=== PATIENT | female | born 1940 | race Caucasian/White ===

== ENCOUNTER 2023-03-03 11:25 | Outpatient (OUT) | payer MEDICARE, BC, SELFPAY ==
[2023-03-03 12:04] LABS: Basophils Absolute Auto 0.1 10^3/uL (0.0-0.1); Basophils Percent Auto 0.8 % (0.2-2.0); Eosinophils Absolute Auto 0.2 10^3/uL (0.0-0.7); Eosinophils Percent Auto 3.7 % (0.9-7.0); Hematocrit 40.8 % (36.0-48.0); Hemoglobin 13.3 g/dL (12.0-16.0); Immature Granulocytes Abs Auto 0.02 10^3/uL (0.00-0.03); Immature Granulocytes Pct Auto 0.3 % (0.0-0.5); Lymphocytes Percent Auto 31.5 % (20.5-60.0); Mean Corpuscular HGB Conc 32.6 g/dL (29.9-35.2); Mean Corpuscular Hemoglobin 30.5 pg (26.7-34.0); Mean Corpuscular Volume 93.6 fL (81.0-99.0); Mean Platelet Volume 10.3 fL (9.5-13.5); Monocytes Absolute Auto 0.5 10^3/uL (0.3-0.8); Monocytes Percent Auto 7.9 % (1.7-12.0); Neutrophils Absolute Auto 3.6 10^3/uL (1.4-6.5); Neutrophils Percent Auto 55.8 % (43.0-75.0); Platelet Count 174 10^3/uL (150-450); Red Blood Count 4.36 10^6/uL (4.20-5.40); Red Cell Distribution Width 12.9 % (11.0-15.0); White Blood Count 6.4 10^3/uL (4.0-11.0)
[2023-03-03 12:48] LABS: Alanine Aminotransferase 17 U/L (14-59); Albumin Globulin Ratio 1.3; Albumin Level 3.9 g/dL (3.4-5.0); Alkaline Phosphatase 62 U/L (46-116); Anion Gap 12.5; Aspartate Amino Transferase <5 U/L (15-37); BUN Creatinine Ratio 18.2; Bilirubin Total 1.3 mg/dL (0.2-1.0); Calcium 9.2 mg/dL (8.5-10.1); Carbon Dioxide 24.8 mmol/L (21.0-32.0); Chloride 107 mmol/L (98-107); Estimated GFR (African America >60 (>=60); Estimated GFR (Non-African Ame 54 (>=60); Globulin 2.9 g/dL; Glucose 260 mg/dL (74-106); Potassium 4.3 mmol/L (3.5-5.1); Sodium 140 mmol/L (136-145); Total Protein 6.8 g/dL (6.4-8.2)
== END 2023-03-03 11:26 | disposition home or self-care (01) ==
LOC: LAB 11:30
PROVIDERS: PCP Nurse Practitioner; Visit Provider Nurse Practitioner Acute Care
DX: I10 Essential (primary) hypertension (principal)
CPT/HCPCS: 36415; 80053; 85025

== ENCOUNTER 2023-03-27 09:55 | Outpatient (OUT) | payer MEDICARE, BC, SELFPAY ==
--- NOTE | 2023-03-27 10:50 | CA_ITS ---
Patient: SCOTT BERNAL Exam Date: 03/27/2023 : 1940 Gender:F Ordering : MRS. MINNA DOUGHERTY NP Admission #: [id number] Family : Order #: [id number] CLICK HERE TO VIEW EXAM ECHOCARDIOGRAM REPORT PROCEDURE: CA ECHO DOPPLER COMPLETE INDICATIONS: Pulmonary hypertension COMPARISON: None. DESCRIPTION: COMPLETE ECHOCARDIOGRAM Real-time transthoracic echocardiography with 2D, M-mode, spectral and color flow Doppler performed. QUALITY: Technical quality was good. LEFT VENTRICLE: Normal chamber size. Thickened septal wall. LV EF: Global left ventricular systolic function is normal. Calculated left ventricular ejection fraction is 59%. No significant wall motion abnormalities. DIASTOLIC: Grade 2, moderate diastolic dysfunction. ATRIAL SEPTUM: Inadequately seen. LEFT ATRIUM: Appears enlarged. RIGHT ATRIUM: Mild dilatation. RIGHT VENTRICLE: Normal chamber size. Normal right ventricular systolic function. Pacer wire present. TRICUSPID VALVE: Normal mobility and thickness. Mild regurgitation. Mild pulmonary hypertension. RVSP 44mmHg MITRAL VALVE: Mildly thickened with normal mobility. No evidence of mitral valve stenosis. Moderate mitral annular calcification. Moderate mitral regurgitation. AORTIC VALVE: Normal trileaflet appearance. Mildly calcified aortic valve. Mildly diminished mobility. Doppler velocity suggests mild aortic valve stenosis. DVI 0.5. No aortic regurgitation. AORTIC ROOT: Normal diameter and appearance. PULMONIC VALVE: Normal thickness and mobility. No stenosis. Trivial regurgitation. PERICARDIUM: Anterior free space; trivial effusion versus fat pad. IVC: Collapses with inspirations. Normal size. CONCLUSION: 1. Global left ventricular systolic function is normal; visually estimated ejection fraction is 55 to 60%. 2. Biatrial enlargement. 3. The right ventricle is normal in size and systolic function. 4. Grade 2, moderate diastolic dysfunction. 5. Mild tricuspid regurgitation. 6. Mildly elevated right ventricular systolic pressure; RVSP 44 mmHg. 7. Moderate mitral regurgitation. 8. Mild aortic valve stenosis. 9. Anterior free space; trivial effusion versus fat pad. Adult Echocardiography Procedure Report Left Ventricle LVEDD (3.7 - 5.6 cm): 4.60 cm LVESD (2.2 - 4.0 cm): 3.17 cm LVIVS thickness (0.6 - 1.2 cm): 1.59 cm LVPW thickness (0.5 - 1.0 cm): 0.87 cm e': 0.06 m/s E - e': 16.17 LVOT Max Gradient: 3.00 mm[Hg] LVOT Area (cm2): 0.87 m/s Peak Velocity (LVOT): 0.87 m/s Mean Velocity (LVOT): 0.62 m/s LVOT Diameter 1.97 cm Left Ventricular Ejection Fraction: 58.93 % Left Atrium LA Volume Index (2D A2C): 44.04 ml/m2 Left Atrium Systolic Dimension: 4.72 cm Mitral Valve MV E to A Ratio: 1 Mitral Valve A-Wave Peak Velocity: 0.97 m/s Mitral Valve E-Wave Peak Velocity: 0.97 m/s Right Ventricle RV Internal Diastolic Dimension: 3.18 cm Aorta AO Root Diam: 2.82 cm Ascending Ao Diam: 3.36 cm Aortic Valve AoV Area (Peak Yury): 1.61 cm2, 1.61 cm2 AoV Area (VTI): 1.47 cm2, 1.47 cm2 Peak Velocity(Antegrade Flow): 1.64 m/s Peak Gradient(Antegrade Flow): 10.70 mm[Hg] Mean Velocity(Antegrade Flow): 1.18 m/s Mean Gradient(Antegrade Flow): 6.20 mm[Hg] Velocity Time Integral: 45.58 cm Tricuspid Valve Peak Velocity (Regurgitant Flow): 3.21 m/s, 3.11 m/s, 2.90 m/s Pulmonic Valve Mean Gradient: 2.32 mm[Hg], 2.69 mm[Hg] Mean Velocity: 0.72 m/s, 0.77 m/s Peak Velocity: 1.05 m/s Peak Gradient: 3.90 mm[Hg], 4.97 mm[Hg] Right Atrium Right Atrium Systolic Pressure: 37.06 ml, 37.06 ml Dictated by: Narendra Casarez M.D. on 03/28/2023 at 15:23 Approved by: Narendra Casarez M.D. on 03/28/2023 at 15:30
== END 2023-03-27 09:56 | disposition home or self-care (01) ==
LOC: CARD 09:55
PROVIDERS: PCP Nurse Practitioner; Visit Provider Nurse Practitioner Acute Care
DX: I27.20 Pulmonary hypertension, unspecified (principal); I08.3 Combined rheumatic disorders of mitral, aortic and tricuspid valves
CPT/HCPCS: 93306

== ENCOUNTER 2023-11-24 11:34 | Emergency (ER) | payer MEDICARE, BC, SELFPAY ==
[2023-11-24 11:39] VITALS: BP 174/70; PULSE 69; TEMP 36.8; O2SAT 96; BMI 34.8
--- NOTE | 2023-11-24 11:46 | XR_ITS ---
The [address] [address] Patient Name: SCOTT BERNAL MRN: [id number] date: 1940 Sex: F Assigned Patient Location: ER Current Patient Location: ER Accession/Order Number: [id number] Exam Date: 11/24/2023 11:50 Report Date: 11/24/2023 12:41 At the request of: YUMIKO SCOTT Procedure: XR ribs RT min 3V w CXR1V EXAMINATION: XR ribs RT min 3V w CXR1V HISTORY: fall [; acute anterior right rib pain COMPARISON: XR chest 02/18/2022 FINDINGS: LUNGS: Hyperexpanded lungs. No appreciable infiltrates or suspicious nodules. PLEURA: No pneumothorax, effusion, or pleural thickening. MEDIASTINUM: No visible mass or adenopathy. CARDIAC: No cardiomegaly or cardiac silhouette abnormality. RIBS: Normal. No significant arthropathy or acute abnormality. OTHER: Cardiac pacer. XR/XR ribs RT min 3V w CXR1V IMPRESSION: 1. No acute cardiac pulmonary process. 2. No appreciable right rib fracture. Electronically authenticated by: KEVIN DAY Date: 11/24/2023 12:41
--- NOTE | 2023-11-24 11:46 | ED.FALL1 ---
HPI HPI - Fall General Chief Complaint: Fall Stated Complaint: FALL Time Seen by Provider: 11/24/23 11:38 Source: patient Mode of arrival: walk-in Limitations: no limitations History of Present Illness HPI Narrative: 83-year-old female presents for pain in her right anterior lateral rib region. She tripped and fell and believes that her right arm got pushed into her ribs. She did not hit her head and does not believe that she hit the rib area on the ground. No LOC and no abdominal pain. This happened 30 minutes ago. Related Data Allergies Allergy/AdvReac Type Severity Reaction Status Date / Time No Known Drug Allergies Allergy Verified 11/24/23 11:38 Opioid HPI Opioid Management Most Recent Pain and Opioid Data: Last Pain Scale 5 11/24/23 11:45 Review of Systems ROS Narrative A ten point review of systems is negative except as noted above. Exam Narrative Exam Narrative: Nurses note and vital signs reviewed and patient is not hypoxic. General: The patient appears well and in no apparent distress. Patient is resting comfortably on cart. Skin: Warm, dry, no pallor noted. There is no rash noted. Head: Normocephalic, atraumatic Eye: Normal conjunctiva, no drainage Ears, Nose, Mouth, and Throat: oral mucosa is moist. Nares patent. Cardiovascular: Regular Rate and Rhythm Respiratory: Patient is in no distress, no accessory muscle use, lungs are clear to auscultation, no wheezing, rales or rhonchi; tenderness present to the right anterior lateral rib region. No crepitus bruise or abrasion present. Breath sounds equal. Back: non-tender, no CVA tenderness bilaterally to percussion. GI: Soft and nontender including the right upper quadrant Musculoskeletal: The patient has no evidence of calf tenderness, no pitting edema, symmetrical pulses noted bilaterally Neurological: A&O, normal speech Psychiatric: Cooperative Constitutional Vital Signs, click to edit/add: Last Vital Signs Temp 98.2 F 11/24/23 11:39 Pulse 69 11/24/23 11:39 Resp 20 11/24/23 11:39 BP 174/70 H 11/24/23 11:39 Pulse Ox 96 11/24/23 11:39 O2 Del Method Room Air 11/24/23 11:39 Course Vital Signs Vital signs: Vital Signs Temperature 98.2 F 11/24/23 11:39 Pulse Rate 69 11/24/23 11:39 Respiratory Rate 20 11/24/23 11:39 Blood Pressure 174/70 H 11/24/23 11:39 Pulse Oximetry 96 11/24/23 11:39 Oxygen Delivery Method Room Air 11/24/23 11:39 Temperature 98.2 F 11/24/23 11:39 Pulse Rate 69 11/24/23 11:39 Respiratory Rate 20 11/24/23 11:39 Blood Pressure 174/70 H 11/24/23 11:39 Pulse Oximetry 96 11/24/23 11:39 Oxygen Delivery Method Room Air 11/24/23 11:39 MDM - Fall MDM Narrative Medical decision making narrative: X-ray showed no rib fracture. Findings are discussed with the patient and she is able to be discharged home. Imaging Data Rib x-ray : Radiologist's impression: ITS Impressions Ribs X-Ray 11/24/23 11:46 IMPRESSION: 1. No acute cardiac pulmonary process. 2. No appreciable right rib fracture. Electronically authenticated by: KEVIN DAY Date: 11/24/2023 12:41 Discharge Plan Discharge Stand Alone Forms: Portal Instructions Chief Complaint: Fall Clinical Impression: Chest wall contusion Patient Disposition: Home, Self-Care Time of Disposition Decision: 12:50 Condition: Good Mode of Transportation: Private Vehicle Print Language: Turkish Instructions: Contusion in Adults (ED), Rib Contusion (ED) Referrals: HAIM PALACIOS [Primary Care Provider] - 1 week
== END 2023-11-24 12:53 | disposition home or self-care (01) ==
PROVIDERS: Emergency Provider Emergency Medicine; PCP Nurse Practitioner
DX: S20.211A Contusion of right front wall of thorax, initial encounter (principal); W01.0XXA Fall on same level from slipping, tripping and stumbling without subsequent striking against object, initial encounter
CPT/HCPCS: 71101; 99283

== ENCOUNTER 2023-12-15 16:48 | Emergency (ER) | payer MEDICARE, BC, SELFPAY ==
[2023-12-15] VITALS (19 sets, daily range): BP systolic 141–185; BP diastolic 60–105; PULSE 60–76; TEMP 36.9; O2SAT 95–97; BMI 34.8
--- NOTE | 2023-12-15 16:58 | ECG_ITS ---
The [facility] Test Date: 2023-12-15 Pat Name: SCOTT BERNAL Department: Room: - Gender: Female [employer]: : 1940 Requested By: Order Number: [id number] Reading MD: GARRY FOOTE Measurements Intervals [place] Rate: 63 P: -86 AK: 274 QRS: 117 QRSD: 148 T: 53 QT: 472 QTc: 480 Interpretive Statements [id number] Electronic atrial pacemaker Electronically Signed On 12-16-2023 8:05:24 EDT by GARRY FOOTE
--- NOTE | 2023-12-15 17:17 | XR_ITS ---
The [address] [address] Patient Name: SCOTT BERNAL MRN: [id number] date: 1940 Sex: F Assigned Patient Location: ER Current Patient Location: ER Accession/Order Number: [id number] Exam Date: 12/15/2023 17:40 Report Date: 12/15/2023 18:41 At the request of: ANNMARIE SANCHEZ Procedure: XR chest 2V EXAM: XR chest 2V HISTORY: SHORTNESS OF BREATH COMPARISON: 11/24/2023 and earlier. TECHNIQUE: PA, lateral chest x-ray. FINDINGS: Lung markings prominent but unchanged without increasing lung density, consolidation or edema. Mild cardiac enlargement also stable. Pacemaker leads unchanged. No pleural effusion. XR/XR chest 2V IMPRESSION: Stable chest x-ray, no acute findings. Electronically authenticated by: EDIN HANSEN Date: 12/15/2023 18:41
--- NOTE | 2023-12-15 17:22 | ED_ITS ---
HPI HPI - General Adult General Chief complaint: Shortness of Breath/Dyspnea Stated complaint: bp elevated, sob Time Seen by Provider: 12/15/23 16:52 Source: patient Mode of arrival: walk-in History of Present Illness HPI narrative: Patient is a 83-year-old female who is presenting to the ER today with chief complaint of elevated blood pressure 170s over 70s. Patient has no headache, chest pain or shortness of breath. Patient is been having some mild swelling to lower extremities in the evening the past 4 to 5 days. Patient is at bedside. Patient was concerned about 1 elevated blood pressure, so she came to the ER for evaluation. Patient states she has had mild shortness of breath this week, no significant dyspnea with exertion. No difficulty sleeping at nighttime. When patient sleeps at nighttime, she notices that the swelling to her lower extremities are improved in the morning. Patient does take blood pressure medication, no water pills. Patient does have a PCP. Patient is not h ere because the swelling to her legs, she was here because the 1 elevated blood pressure that concerned her even though she is rather asymptomatic. Very pleasant, no recent trauma, no trauma, no other acute complaints All systems are negative except as noted/marked. All systems reviewed and otherwise negative. Nurses note and vital signs reviewed and patient is not hypoxic. General: The patient appears well and in no apparent distress. Patient is resting comfortably on cart. Patient is not toxic, lethargic, or listless Skin: Warm, dry, no pallor noted. There is no rash noted. No petechiae, purpura. Head: Normocephalic, atraumatic Eye: Normal conjunctiva, no drainage, EOMI. PERRL Ears, Nose, Mouth, and Throat: oral mucosa is moist. Nares patent. Mouth without vesicles. Cardiovascular: Regular Rate and Rhythm, no murmur, gallop, rub Respiratory: Patient is in no distress, no accessory muscle use, lungs are clear to auscultation, no wheezing, rales or rhonchi Back: non-tender, no CVA tenderness bilaterally to percussion. No CT LS midline pain GI: no tenderness to palpation, no masses appreciated. No rebound, guarding, or rigidity noted. No distention Musculoskeletal: Patient has full range of motion of all of the extremities, no motor, sensory, or focal neurological deficit, nonpitting edema to bilateral lower extremities. Patient has no pain to palpation to the posterior aspect of bilateral lower extremities from bilateral posterior thighs, popliteal fossa, and calves bilateral. Neurological: A&O x4, normal speech Psychiatric: Cooperative Related Data Home Medications ?Medication ?Instructions ?Recorded ?Confirmed alendronate 70 mg tablet (Fosamax) 70 mg PO QWEEK 12/15/23 12/15/23 amlodipine 5 mg tablet 5 mg PO DAILY 12/15/23 12/15/23 aspirin 81 mg tablet,delayed 81 mg PO DAILY 12/15/23 12/15/23 release carvedilol 6.25 mg tablet 6.25 mg PO BID 12/15/23 12/15/23 cholecalciferol (vitamin D3) 125 5,000 unit PO DAILY 12/15/23 12/15/23 mcg (5,000 unit) capsule glyburide 1.25 mg tablet 1.25 mg PO DAILY 12/15/23 12/15/23 levothyroxine 50 mcg tablet 50 mcg PO DAILY 12/15/23 12/15/23 (Euthyrox) metformin 750 mg tablet,extended 750 mg PO DAILY 12/15/23 12/15/23 release 24 hr simvastatin 40 mg tablet 40 mg PO DAILY 12/15/23 12/15/23 Allergies Allergy/AdvReac Type Severity Reaction Status Date / Time No Known Drug Allergies Allergy Verified 11/24/23 11:38 Opioid HPI Opioid Management Most Recent Opioid Data: Last Pain Scale 5 11/24/23 11:45 Exam Constitutional Vital Signs, click to edit/add: Last Vital Signs Temp 98.5 F 12/15/23 16:50 Pulse 60 12/15/23 18:45 Resp 20 12/15/23 18:45 BP 141/60 12/15/23 18:45 Pulse Ox 97 12/15/23 16:54 O2 Del Method Room Air 12/15/23 16:50 Course Vital Signs Vital signs: Vital Signs Temperature 98.5 F 12/15/23 16:50 Pulse Rate 70 12/15/23 16:50 Respiratory Rate 20 12/15/23 16:50 Blood Pressure 185/90 H 12/15/23 16:50 Pulse Oximetry 96 12/15/23 16:50 Oxygen Delivery Method Room Air 12/15/23 16:50 Temperature 98.5 F 05/10/24 16:50 Pulse Rate 60 12/15/23 18:45 Respiratory Rate 20 12/15/23 18:45 Blood Pressure 141/60 12/15/23 18:45 Pulse Oximetry 97 12/15/23 16:54 Oxygen Delivery Method Room Air 12/15/23 16:50 Medical Decision Making MDM Narrative Medical decision making narrative: Patient had chest x-ray, EKG, lab work done. Patient's blood pressure has been slightly elevated in the ER today. Education on checking blood pressure at home twice a day for the next week and presenting a blood pressure log to her PCP was discussed at bedside. Patient is asymptomatic. Education on elevating legs at nighttime while she is sleeping was discussed, raising the foot of her bed 1 or 2 feet. Patient also has compression stockings at home that she can wear. Patient was given 1 dose of hydralazine 10 mg to help with blood pressure just for this evening. Patient understands that she needs long-term changes, she theodora l follow-up with PCP. Patient will return to the ER if she is having any major headache, major chest pain or pressure, significant shortness of breath or any other acute complaint. Lab Data Lab results reviewed: Yes I reviewed the patient's lab results Labs: Lab Results 12/15/23 Range/Units 17:05 WBC 7.3 (4.0-11.0) 10^3/uL RBC 4.23 (4.20-5.40) 10^6/uL Hgb 12.8 (12.0-16.0) g/dL Hct 39.4 (36.0-48.0) % MCV 93.1 (81.0-99.0) fL MCH 30.3 (26.7-34.0) pg MCHC 32.5 (29.9-35.2) g/dL RDW 13.1 (11.0-15.0) % Plt Count 179 (150-450) 10^3/uL MPV 10.3 (9.5-13.5) fL Neut % (Auto) 53.8 (43.0-75.0) % Lymph % (Auto) 30.6 (20.5-60.0) % Ocean % (Auto) 9.4 (1.7-12.0) % Eos % (Auto) 4.8 (0.9-7.0) % Baso % (Auto) 1.0 (0.2-2.0) % Neut # (Auto) 3.9 (1.4-6.5) 10^3/uL Lymph # (Auto) 2.2 (1.2-3.8) 10^3/uL Ocean # (Auto) 0.7 (0.3-0.8) 10^3/uL Eos # (Auto) 0.4 (0.0-0.7) 10^3/uL Baso # (Auto) 0.1 (0.0-0.1) 10^3/uL Abs Immat Gran (auto) 0.03 (0.00-0.03) 10^3/uL Imm/Tot Granulo (auto) 0.4 (0.0-0.5) % Sodium 141 (136-145) mmol/L Potassium 3.8 (3.5-5.1) mmol/L Chloride 106 (98-107) mmol/L Carbon Dioxide 23.9 (21.0-32.0) mmol/L Anion Gap 14.9 BUN 20.0 H (7.0-18.0) mg/dL Creatinine 0.87 (0.55-1.02) mg/dL Est GFR ( Amer) >60 (>=60) Est GFR (Non-Af Amer) >60 (>=60) BUN/Creatinine Ratio 23.0 Glucose 136 H (74-106) mg/dL Calcium 9.6 (8.5-10.1) mg/dL Troponin I High Sens 10.8 (4.0-51.3) pg/mL NT-Pro-B Natriuret Pep 1621.0 (<=1800.0) pg/mL ECG Data Attestation: I personally reviewed and interpreted this ECG as follows: (EKG interpretation. Atrial paced rhythm at 63 beats a minute. Normal axis deviation. No acute ST elevation, no acute ectopy. QTc of 480) Discharge Plan Discharge Stand Alone Forms: Portal Instructions Chief Complaint: Shortness of Breath/Dyspnea Clinical Impression: Dyspnea, Edema, peripheral, Hypertension Patient Disposition: Home, Self-Care Condition: Fair Prescriptions / Home Meds: No Action levothyroxine [Euthyrox] 50 mcg tablet 50 mcg PO DAILY alendronate [Fosamax] 70 mg tablet 70 mg PO QWEEK simvastatin 40 mg tablet 40 mg PO DAILY metformin 750 mg tablet extended release 24 hr 750 mg PO DAILY glyburide 1.25 mg tablet 1.25 mg PO DAILY aspirin 81 mg tablet,delayed release (DR/EC) 81 mg PO DAILY cholecalciferol (vitamin D3) 125 mcg (5,000 unit) capsule 5,000 unit PO DAILY carvedilol 6.25 mg tablet 6.25 mg PO BID Rx Instructions: must administer with a meal/food amlodipine 5 mg tablet 5 mg PO DAILY Print Language: Kosovan Instructions: Leg Edema (ED), Dyspnea (ED), Hypertension (ED) Additional Instructions: Elevate your legs at bedtime as discussed, raise the end of your bed 1 to 2 feet to help with swelling at nighttime. Use your compression stockings. Take your blood pressure twice a day, record the blood pressure reading and time. Present your blood pressure log to your PCP, and if your blood pressure is consistently over 140/90, you may need a medication adjustment. If you are having any severe, severe headache, significant heavy chest pressure, or significant shortness of breath, return to ER for reevaluation Referrals: HAIM PALACIOS [Primary Care Provider] - 1 week Discharge Date/Time: 12/15/23 19:16
[2023-12-15 17:35] LABS: Basophils Absolute Auto 0.1 10^3/uL (0.0-0.1); Eosinophils Absolute Auto 0.4 10^3/uL (0.0-0.7); Eosinophils Percent Auto 4.8 % (0.9-7.0); Hematocrit 39.4 % (36.0-48.0); Hemoglobin 12.8 g/dL (12.0-16.0); Immature Granulocytes Abs Auto 0.03 10^3/uL (0.00-0.03); Immature Granulocytes Pct Auto 0.4 % (0.0-0.5); Lymphocytes Absolute Auto 2.2 10^3/uL (1.2-3.8); Lymphocytes Percent Auto 30.6 % (20.5-60.0); Mean Corpuscular HGB Conc 32.5 g/dL (29.9-35.2); Mean Corpuscular Hemoglobin 30.3 pg (26.7-34.0); Mean Corpuscular Volume 93.1 fL (81.0-99.0); Mean Platelet Volume 10.3 fL (9.5-13.5); Monocytes Absolute Auto 0.7 10^3/uL (0.3-0.8); Monocytes Percent Auto 9.4 % (1.7-12.0); Neutrophils Absolute Auto 3.9 10^3/uL (1.4-6.5); Neutrophils Percent Auto 53.8 % (43.0-75.0); Platelet Count 179 10^3/uL (150-450); Red Blood Count 4.23 10^6/uL (4.20-5.40); Red Cell Distribution Width 13.1 % (11.0-15.0); White Blood Count 7.3 10^3/uL (4.0-11.0)
[2023-12-15 17:59] LABS: Anion Gap 14.9; Calcium 9.6 mg/dL (8.5-10.1); Carbon Dioxide 23.9 mmol/L (21.0-32.0); Chloride 106 mmol/L (98-107); Estimated GFR (African America >60 (>=60); Estimated GFR (Non-African Ame >60 (>=60); Glucose 136 mg/dL (74-106); Potassium 3.8 mmol/L (3.5-5.1); Sodium 141 mmol/L (136-145); Troponin I High Sensitivity 10.8 pg/mL (4.0-51.3)
[2023-12-15] MEDS: HYDRALAZINE HCL 20 MG/ML VIAL 10 MG IVP (18:22)
== END 2023-12-15 19:16 | disposition home or self-care (01) ==
PROVIDERS: Emergency Provider Emergency Medicine; PCP Nurse Practitioner
DX: I10 Essential (primary) hypertension (principal); R60.0 Localized edema; R06.00 Dyspnea, unspecified; R06.02 Shortness of breath; Z79.82 Long term (current) use of aspirin; Z79.899 Other long term (current) drug therapy
CPT/HCPCS: 36415; 71046; 80048; 83880; 84484; 85025; 93005; 96374; 99285

== ENCOUNTER 2023-12-22 12:01 | Outpatient (OUT) | payer MEDICARE, BC, SELFPAY ==
[2023-12-22 12:37] LABS: Anion Gap 11.7; BUN Creatinine Ratio 23.2; Calcium 9.8 mg/dL (8.5-10.1); Carbon Dioxide 28.3 mmol/L (21.0-32.0); Chloride 105 mmol/L (98-107); Estimated GFR (African America >60 (>=60); Estimated GFR (Non-African Ame >60 (>=60); Glucose 139 mg/dL (74-106); Sodium 141 mmol/L (136-145)
== END 2023-12-22 12:02 | disposition home or self-care (01) ==
LOC: LAB 12:03
PROVIDERS: PCP Nurse Practitioner; Visit Provider Internal Medicine Cardiovascular Disease
DX: I11.0 Hypertensive heart disease with heart failure (principal)
CPT/HCPCS: 36415; 80048

== ENCOUNTER 2024-04-16 11:47 | Outpatient (RCR) | payer MEDICARE, BC, SELFPAY | END 2024-05-07 23:59 | disposition home or self-care (01) | LOC: MM 11:47 | PROVIDERS: PCP Nurse Practitioner; Visit Provider Internal Medicine | DX: Z51.81 Encounter for therapeutic drug level monitoring (principal); Z79.01 Long term (current) use of anticoagulants; I48.20 Chronic atrial fibrillation, unspecified | CPT/HCPCS: 85610; G0463 ==

== ENCOUNTER 2024-04-16 12:54 | Outpatient (OUT) | payer MEDICARE, BC, SELFPAY ==
[2024-04-16 13:31] LABS: Basophils Absolute Auto 0.1 10^3/uL (0.0-0.1); Basophils Percent Auto 0.7 % (0.2-2.0); Eosinophils Absolute Auto 0.3 10^3/uL (0.0-0.7); Eosinophils Percent Auto 3.4 % (0.9-7.0); Hematocrit 42.2 % (36.0-48.0); Hemoglobin 13.8 g/dL (12.0-16.0); Immature Granulocytes Abs Auto 0.03 10^3/uL (0.00-0.03); Immature Granulocytes Pct Auto 0.4 % (0.0-0.5); Lymphocytes Absolute Auto 2.7 10^3/uL (1.2-3.8); Lymphocytes Percent Auto 31.4 % (20.5-60.0); Mean Corpuscular HGB Conc 32.7 g/dL (29.9-35.2); Mean Corpuscular Hemoglobin 30.6 pg (26.7-34.0); Mean Corpuscular Volume 93.6 fL (81.0-99.0); Mean Platelet Volume 10.1 fL (9.5-13.5); Monocytes Absolute Auto 0.7 10^3/uL (0.3-0.8); Monocytes Percent Auto 8.4 % (1.7-12.0); Neutrophils Absolute Auto 4.8 10^3/uL (1.4-6.5); Neutrophils Percent Auto 55.7 % (43.0-75.0); Platelet Count 179 10^3/uL (150-450); Red Blood Count 4.51 10^6/uL (4.20-5.40); Red Cell Distribution Width 13.2 % (11.0-15.0); White Blood Count 8.5 10^3/uL (4.0-11.0)
[2024-04-16 14:00] LABS: Anion Gap 11.7; BUN Creatinine Ratio 24.4; Calcium 9.6 mg/dL (8.5-10.1); Carbon Dioxide 26.6 mmol/L (21.0-32.0); Chloride 106 mmol/L (98-107); Estimated GFR (African America >60 (>=60); Estimated GFR (Non-African Ame 60 (>=60); Glucose 119 mg/dL (74-106); Potassium 4.3 mmol/L (3.5-5.1); Sodium 140 mmol/L (136-145)
== END 2024-04-16 12:55 | disposition home or self-care (01) ==
LOC: LAB 12:54
PROVIDERS: PCP Nurse Practitioner; Visit Provider Internal Medicine Cardiovascular Disease
DX: I48.0 Paroxysmal atrial fibrillation (principal)
CPT/HCPCS: 36415; 80048; 85025

== ENCOUNTER 2024-05-07 01:27 | Outpatient (RCR) | payer MEDICARE, BC, SELFPAY | END 2024-06-06 23:34 | disposition home or self-care (01) | LOC: MM 01:27 | PROVIDERS: PCP Nurse Practitioner; Visit Provider Internal Medicine | DX: Z51.81 Encounter for therapeutic drug level monitoring (principal); Z79.01 Long term (current) use of anticoagulants; I48.20 Chronic atrial fibrillation, unspecified | CPT/HCPCS: 85610; G0463; J3430 ==

== ENCOUNTER 2024-06-07 11:09 | Outpatient (RCR) | payer MEDICARE, BC, SELFPAY | END 2024-07-06 23:59 | disposition home or self-care (01) | LOC: MM 11:09 | PROVIDERS: PCP Nurse Practitioner; Visit Provider Internal Medicine | DX: Z51.81 Encounter for therapeutic drug level monitoring (principal); I48.20 Chronic atrial fibrillation, unspecified; Z79.01 Long term (current) use of anticoagulants ==

== ENCOUNTER 2024-07-08 03:20 | Outpatient (RCR) | payer MEDICARE, BC, SELFPAY | END 2024-08-06 09:38 | disposition home or self-care (01) | LOC: MM 03:20 | PROVIDERS: PCP Nurse Practitioner; Visit Provider Internal Medicine | DX: Z51.81 Encounter for therapeutic drug level monitoring (principal); Z79.01 Long term (current) use of anticoagulants; I48.20 Chronic atrial fibrillation, unspecified ==

== ENCOUNTER 2024-08-08 00:29 | Outpatient (RCR) | payer MEDICARE, BC, SELFPAY | END 2024-09-06 15:23 | disposition home or self-care (01) | LOC: MM 00:29 | PROVIDERS: PCP Nurse Practitioner; Visit Provider Internal Medicine | DX: Z51.81 Encounter for therapeutic drug level monitoring (principal); Z79.01 Long term (current) use of anticoagulants; I48.20 Chronic atrial fibrillation, unspecified ==

== ENCOUNTER 2024-09-09 02:21 | Outpatient (RCR) | payer MEDICARE, BC, SELFPAY | END 2024-10-04 12:38 | disposition home or self-care (01) | LOC: MM 02:21 | PROVIDERS: PCP Nurse Practitioner; Visit Provider Internal Medicine | DX: Z51.81 Encounter for therapeutic drug level monitoring (principal); Z79.01 Long term (current) use of anticoagulants; I48.20 Chronic atrial fibrillation, unspecified ==

== ENCOUNTER 2024-10-06 08:11 | Outpatient (RCR) | payer MEDICARE, BC, SELFPAY | END 2024-11-01 13:29 | disposition home or self-care (01) | LOC: MM 08:11 | PROVIDERS: PCP Nurse Practitioner; Visit Provider Internal Medicine | DX: Z51.81 Encounter for therapeutic drug level monitoring (principal); Z79.01 Long term (current) use of anticoagulants; I48.91 Unspecified atrial fibrillation ==

== ENCOUNTER 2024-11-05 05:59 | Outpatient (RCR) | payer MEDICARE, BC, SELFPAY | END 2024-12-04 15:02 | disposition home or self-care (01) | LOC: MM 05:59 | PROVIDERS: PCP Nurse Practitioner; Visit Provider Internal Medicine | DX: Z51.81 Encounter for therapeutic drug level monitoring (principal); Z79.01 Long term (current) use of anticoagulants; I48.20 Chronic atrial fibrillation, unspecified ==

== ENCOUNTER 2024-12-05 04:45 | Outpatient (RCR) | payer MEDICARE, BC, SELFPAY | END 2025-01-03 15:08 | disposition home or self-care (01) | LOC: MM 04:45 | PROVIDERS: PCP Nurse Practitioner; Visit Provider Internal Medicine | DX: Z51.81 Encounter for therapeutic drug level monitoring (principal); Z79.01 Long term (current) use of anticoagulants; I48.20 Chronic atrial fibrillation, unspecified ==

== ENCOUNTER 2024-12-10 09:45 | Outpatient (OUT) | payer MEDICARE, BC, SELFPAY ==
--- NOTE | 2024-12-10 10:00 | CA_ITS ---
Patient Name: SCOTT BERNAL MR#: [id number] : 1940 Exam Date: 12/10/2024 Ordering Doctor: RHODA VELASQUEZ ECHOCARDIOGRAM REPORT PROCEDURE: CA ECHO DOPPLER COMPLETE INDICATIONS: Atrial fibrillation - ablation, pacemaker, hypertension COMPARISON: None. DESCRIPTION: COMPLETE ECHOCARDIOGRAM Real-time transthoracic echocardiography with 2D, M-mode, spectral and color flow Doppler performed. QUALITY: Technical quality was good. LEFT VENTRICLE: Normal chamber size. Mild left ventricular hypertrophy. Sigmoid septum. LV EF: Global left ventricular systolic function is normal; visually estimated ejection fraction is 55 to 60%. No wall motion abnormalities. DIASTOLIC: Grade 2, moderate diastolic dysfunction. E/E' consistent with volume overload. ATRIAL SEPTUM: Visually appears intact. LEFT ATRIUM: Normal chamber size. RIGHT ATRIUM: Normal chamber size. RIGHT VENTRICLE: Normal chamber size. Normal systolic function. Pacer wire present. TRICUSPID VALVE: Normal mobility and thickness. Mild regurgitation. Doppler studies reveal mildly (35-45) elevated right sided pressures. RVSP 42 mmHg MITRAL VALVE: Normal mobility and thickness. No evidence of mitral valve stenosis. Moderate mitral annular calcification. Mild to moderate mitral regurgitation. AORTIC VALVE: Normal trileaflet appearance. Mildly calcified aortic valve with diminished mobility. Doppler velocity suggests no significant aortic valve stenosis. DVI 0.5. Trivial aortic regurgitation. AORTIC ROOT: Normal diameter and appearance. PULMONIC VALVE: Normal thickness and mobility. No stenosis. No regurgitation. PERICARDIUM: No evidence of pericardial effusion. IVC: Collapses with inspirations. IVC is normal in size. CONCLUSION: 1. Global left ventricular systolic function is normal; visually estimated ejection fraction is 55 to 60% 2. Normal right ventricular size and systolic function 3. Mild left ventricular hypertrophy 4. Grade 2 diastolic dysfunction 5. E/E' consistent with volume overload 6. Mild tricuspid regurgitation 7. Mildly elevated right ventricular systolic pressure; RVSP 42 mmHg 8. Mild to moderate mitral regurgitation Adult Echocardiography Procedure Report Left Ventricle LVEDD (3.7 - 5.6 cm): 3.79 cm LVESD (2.2 - 4.0 cm): 2.26 cm LVIVS thickness (0.6 - 1.2 cm): 1.43 cm LVPW thickness (0.5 - 1.0 cm): 1.12 cm e': 0.05 m/s E - e': 20.95 LVOT Max Gradient: 2.17 mm[Hg] LVOT Area (cm2): 0.74 m/s Peak Velocity (LVOT): 0.74 m/s Mean Velocity (LVOT): 0.51 m/s LVOT Diameter 2.15 cm Left Atrium LA Volume Index (2D A2C): 32.19 ml/m2 Left Atrium Systolic Dimension: 3.76 cm Mitral Valve MV E to A Ratio: 1.08 Mitral Valve A-Wave Peak Velocity: 0.91 m/s Mitral Valve E-Wave Peak Velocity: 0.98 m/s Right Ventricle Aorta AO Root Diam: 3.10 cm Aortic Valve AoV Area (Peak Yury): 1.82 cm2, 1.82 cm2 AoV Area (VTI): 1.64 cm2, 1.64 cm2 Peak Velocity(Antegrade Flow): 1.47 m/s Peak Gradient(Antegrade Flow): 8.60 mm[Hg] Mean Velocity(Antegrade Flow): 1.05 m/s Mean Gradient(Antegrade Flow): 4.96 mm[Hg] Velocity Time Integral: 38.94 cm Tricuspid Valve Peak Velocity (Regurgitant Flow): 3.14 m/s, 2.57 m/s, 2.68 m/s Pulmonic Valve Mean Gradient: 2.15 mm[Hg] Mean Velocity: 0.69 m/s Peak Velocity: 1.07 m/s, 1.09 m/s Peak Gradient: 4.79 mm[Hg], 4.61 mm[Hg] Right Atrium Right Atrium Systolic Pressure: 34.97 ml, 34.97 ml Dictated by: Narendra Casarez M.D. on 12/10/2024 at 12:18 Approved by: Narendra Casarez M.D. on 12/10/2024 at 12:25
== END 2024-12-10 09:46 | disposition home or self-care (01) ==
LOC: CARD 09:45
PROVIDERS: PCP Nurse Practitioner; Visit Provider Internal Medicine Cardiovascular Disease
DX: R94.31 Abnormal electrocardiogram [ECG] [EKG] (principal); I48.0 Paroxysmal atrial fibrillation
CPT/HCPCS: 93306

== ENCOUNTER 2025-01-05 07:58 | Outpatient (RCR) | payer MEDICARE, BC, SELFPAY | END 2025-01-07 10:15 | disposition home or self-care (01) | LOC: MM 07:58 | PROVIDERS: PCP Nurse Practitioner; Visit Provider Internal Medicine | DX: I48.20 Chronic atrial fibrillation, unspecified (principal); Z51.81 Encounter for therapeutic drug level monitoring; Z79.01 Long term (current) use of anticoagulants ==